=== PATIENT | male | born 1950 | race Caucasian/White ===

== ENCOUNTER → 2016-04-02 | Outpatient (CLI) | payer BC, MEDICARE ==
[~2016-04-02] MED LIST: AMIT25TA9 PO; ASPI81TA28 PO; ATEN-175 PO; CHOLTAB3 PO; GABA-113 PO; LEVO25TA PO; PRAV20TA PO
[2016-04-02 13:14] LABS: BASO % 0.2 %; BASO ABS # 0.01 K/uL (0-0.2); COMPLETE YES; EOS % 4.6 %; HEMATOCRIT 41.4 % (42-52); IG% 0.3 %; LYMPH ABS # 1.27 K/uL (1.2-3.4); MEAN CELL VOLUME 89.6 fL (80-100); MEAN CORPUSCULAR HEMOGLOBIN 31.6 pg (25-34); MEAN CORPUSCULAR HGB CONC 35.3 g/dl (32-36); MONO % 8.3 %; NEUT % 65.6 %; PLATELET COUNT 181 K/uL (130-400); RED BLOOD COUNT 4.62 M/uL (4.7-6.1); WHITE BLOOD COUNT 6.04 K/uL (4.8-10.8)
[2016-04-02 13:34] LABS: URINE APPEARANCE CLEAR (CLEAR); URINE BILIRUBIN NEG (NEG); URINE COLOR YELLOW; URINE EPITHELIAL CELL AUTO 0-5 /lpf (0-5); URINE NITRITE NEG (NEG); URINE PH 5.5 (4.5-7.5); URINE SPECIFIC GRAVITY 1.008 (1.000-1.030); UROBILINOGEN NEG (NEG); ZZUR CULT IF INDIC CLEAN CATCH NO
[2016-04-02 13:36] LABS: ALT/SGPT 29 U/L (12-78); AST/SGOT 19 U/L (15-37); BLOOD UREA NITROGEN 15 mg/dl (7-18); BUN/CREATININE RATIO 11.6 (10-20); CALCIUM 9.6 mg/dl (8.5-10.1); CARBON DIOXIDE 32 mmol/L (21-32); CHLORIDE 104 mmol/L (98-107); GLUCOSE 119 mg/dl (70-99); SODIUM 142 mmol/L (136-145)
[2016-04-02 13:41] LABS: ESTIMATED AVERAGE GLUCOSE 117 mg/dl; HA1C FLAG Normal (Normal)
[2016-04-02 13:52] LABS: MANUAL MICROSCOPIC REQUIRED? NO; REVIEW REQ? NO
--- NOTE | 2016-04-13 10:46 | CODING QUERY MEDICAL NECESSITY ---
SUPPORTING DIAGNOSIS NEEDED A supporting diagnosis is required for the test/procedure performed on this patient in order for us to be reimbursed by the patient's insurance. Please provide a supporting diagnosis for the following test/procedure listed below next to the test name along with your signature. *If there is no additional diagnosis for this patient that would support the following test/procedure please document that below next to the test/procedure. Test(s)/Procedure(s) that require a supporting diagnosis: DOS 04/02 * Hba1c DIAGNOSIS: Provider Signature: Date: Thank you Nat Cheney Health Information Management Once completed, please kindly fax back to [phone] For questions please call [phone]
== END | disposition home or self-care (01) ==
LOC: C.LABMFLN 10:17
PROVIDERS: ATTEND Internal Medicine
DX: E78.00 Pure hypercholesterolemia, unspecified (principal); N13.30 Unspecified hydronephrosis; N28.9 Disorder of kidney and ureter, unspecified; N26.9 Renal sclerosis, unspecified; I10 Essential (primary) hypertension; Z00.00 Encounter for general adult medical examination without abnormal findings; R73.9 Hyperglycemia, unspecified

== ENCOUNTER → 2016-04-04 | Outpatient (CLI) | payer BC, MEDICARE ==
[2016-04-04 13:48] LABS: CHOLESTEROL/HDL RATIO 4.4; PROSTATE SPECIFIC ANTIGEN 1.21 ng/ml (0.000-4.000)
--- NOTE | 2016-04-09 12:58 | CODING QUERY MEDICAL NECESSITY ---
SUPPORTING DIAGNOSIS NEEDED A supporting diagnosis is required for the test/procedure performed on this patient in order for us to be reimbursed by the patient's insurance. Please provide a supporting diagnosis for the following test/procedure listed below next to the test name along with your signature. *If there is no additional diagnosis for this patient that would support the following test/procedure please document that below next to the test/procedure. Test(s)/Procedure(s) that require a supporting diagnosis: DOS 04/04 * PSA DIAGNOSIS: Provider Signature: Date: Thank you Nat Cheney Health Information Management Once completed, please kindly fax back to [phone] For questions please call [phone]
== END | disposition home or self-care (01) ==
LOC: C.LABMFLN 10:21
PROVIDERS: ATTEND Internal Medicine
DX: E78.00 Pure hypercholesterolemia, unspecified (principal); N13.30 Unspecified hydronephrosis; N28.9 Disorder of kidney and ureter, unspecified; Z12.5 Encounter for screening for malignant neoplasm of prostate

== ENCOUNTER → 2016-10-01 | Outpatient (CLI) | payer MEDICARE ==
[2016-10-01 13:12] LABS: BASO % 0.4 %; BASO ABS # 0.02 K/uL (0-0.2); COMPLETE YES; EOS % 2.7 %; IG% 0.2 %; LYMPH % 21.1 %; MEAN CELL VOLUME 92.3 fL (80-100); MEAN CORPUSCULAR HEMOGLOBIN 31.4 pg (25-34); MEAN PLATELET VOLUME 10.2 fL (7.4-10.4); MONO % 9.6 %; PLATELET COUNT 175 K/uL (130-400); RED BLOOD COUNT 4.55 M/uL (4.7-6.1); WHITE BLOOD COUNT 5.22 K/uL (4.8-10.8)
[2016-10-01 13:13] LABS: URINE APPEARANCE CLEAR (CLEAR); URINE BILIRUBIN NEG (NEG); URINE COLOR YELLOW; URINE EPITHELIAL CELL AUTO 0-5 /lpf (0-5); URINE NITRITE NEG (NEG); URINE PH 5.5 (4.5-7.5); URINE SPECIFIC GRAVITY 1.023 (1.000-1.030); UROBILINOGEN NEG (NEG)
[2016-10-01 13:14] LABS: MANUAL MICROSCOPIC REQUIRED? NO; REVIEW REQ? NO
[2016-10-01 13:22] LABS: BLOOD UREA NITROGEN 18 mg/dl (7-18); BUN/CREATININE RATIO 16.7 (10-20); CALCIUM 9.4 mg/dl (8.5-10.1); CARBON DIOXIDE 29 mmol/L (21-32); CHLORIDE 107 mmol/L (98-107); CHOLESTEROL 186 mg/dl (0-200); GLUCOSE 95 mg/dl (70-99); POTASSIUM 4.3 mmol/L (3.5-5.1); SODIUM 141 mmol/L (136-145); TRIGLYCERIDES 145 mg/dl (0-150); VERY LOW DENSITY LIPOPROT CALC 29 mg/dl
[2016-10-01 13:25] LABS: CHOLESTEROL/HDL RATIO 5.2; HDL CHOLESTEROL 36 mg/dl; LDL CHOLESTEROL CALCULATED 121 mg/dl; PHOSPHORUS 2.1 mg/dl (2.5-4.9)
[2016-10-01 13:54] LABS: THYROID STIMULATING HORMONE 2.69 uIu/ml (0.300-4.500)
[2016-10-01 14:25] LABS: ESTIMATED AVERAGE GLUCOSE 123 mg/dl; HA1C FLAG Normal (Normal)
== END ==
LOC: C.LABMFLN 09:58
PROVIDERS: ATTEND Internal Medicine
DX: E78.5 Hyperlipidemia, unspecified (principal); Z11.59 Encounter for screening for other viral diseases; N18.3 Chronic kidney disease, stage 3 (moderate); I10 Essential (primary) hypertension; R73.01 Impaired fasting glucose; E03.9 Hypothyroidism, unspecified

== ENCOUNTER → 2017-04-15 | Outpatient (CLI) | payer MEDICARE ==
[2017-04-15 12:35] LABS: BASO % 0.5 %; BASO ABS # 0.03 K/uL (0-0.2); EOS % 3.1 %; EOS ABS # 0.17 K/uL (0-0.5); HEMATOCRIT 42.8 % (42-52); HEMOGLOBIN 14.7 g/dL (14.0-18.0); IG# 0.02 K/uL (0.00-0.02); LYMPH % 23.4 %; LYMPH ABS # 1.28 K/uL (1.2-3.4); MEAN CELL VOLUME 91.8 fL (80-100); MEAN CORPUSCULAR HEMOGLOBIN 31.5 pg (25-34); MEAN CORPUSCULAR HGB CONC 34.3 g/dl (32-36); MEAN PLATELET VOLUME 10.1 fL (7.4-10.4); MONO ABS # 0.49 K/uL (0.11-0.59); NEUT % 63.6 %; NEUT ABS # 3.47 K/uL (1.4-6.5); PLATELET COUNT 175 K/uL (130-400); RED CELL DISTRIBUTION WIDTH CV 12.5 % (11.5-14.5); RED CELL DISTRIBUTION WIDTH SD 41.8 fL (36.4-46.3); WHITE BLOOD COUNT 5.46 K/uL (4.8-10.8)
[2017-04-15 13:29] LABS: HEMOGLOBIN A1C 5.9 % (4.5-5.6)
[2017-04-15 13:34] LABS: ALT/SGPT 29 U/L (12-78); AST/SGOT 19 U/L (15-37); BLOOD UREA NITROGEN 23 mg/dl (7-18); CALCIUM 8.8 mg/dl (8.5-10.1); CARBON DIOXIDE 30 mmol/L (21-32); GLUCOSE 98 mg/dl (70-99); SODIUM 139 mmol/L (136-145)
[2017-04-15 13:44] LABS: CHOLESTEROL 168 mg/dl (0-200); LDL CHOLESTEROL CALCULATED 103 mg/dl
== END | disposition home or self-care (01) ==
LOC: C.LABMFLN 10:29
PROVIDERS: ATTEND Internal Medicine
DX: E78.00 Pure hypercholesterolemia, unspecified (principal)

== ENCOUNTER → 2017-10-16 | Outpatient (CLI) | payer MEDICARE ==
[~2017-10-16] MED LIST changes: -CHOLTAB3 PO
[2017-10-16 12:46] LABS: BASO % 0.3 %; BASO ABS # 0.02 K/uL (0-0.2); EOS % 1.8 %; EOS ABS # 0.12 K/uL (0-0.5); HEMOGLOBIN 14.8 g/dL (14.0-18.0); IG# 0.02 K/uL (0.00-0.02); LYMPH % 20.2 %; LYMPH ABS # 1.34 K/uL (1.2-3.4); MEAN CELL VOLUME 91.7 fL (80-100); MEAN CORPUSCULAR HEMOGLOBIN 30.8 pg (25-34); MEAN CORPUSCULAR HGB CONC 33.6 g/dl (32-36); MONO % 8.4 %; MONO ABS # 0.56 K/uL (0.11-0.59); NEUT ABS # 4.59 K/uL (1.4-6.5); PLATELET COUNT 201 K/uL (130-400); RED CELL DISTRIBUTION WIDTH CV 12.8 % (11.5-14.5); RED CELL DISTRIBUTION WIDTH SD 42.8 fL (36.4-46.3); WHITE BLOOD COUNT 6.65 K/uL (4.8-10.8)
[2017-10-16 12:56] LABS: ALT/SGPT 30 U/L (12-78); AST/SGOT 25 U/L (15-37); BLOOD UREA NITROGEN 23 mg/dl (7-18); CARBON DIOXIDE 28 mmol/L (21-32); CHOLESTEROL 183 mg/dl (0-200); CREATININE 1.15 mg/dl (0.60-1.40); GLUCOSE 105 mg/dl (70-99); LDL CHOLESTEROL CALCULATED 116 mg/dl; SODIUM 139 mmol/L (136-145)
== END | disposition home or self-care (01) ==
LOC: C.LABMFLN 09:28
PROVIDERS: ATTEND Internal Medicine
DX: E78.00 Pure hypercholesterolemia, unspecified (principal)

== ENCOUNTER 2022-11-20 15:20 | Inpatient (IN) ==
--- NOTE | 2022-11-20 16:02 | XRay Report ---
XR chest 1V not portable CLINICAL HISTORY: Chest pain, nonspecific COMPARISON STUDY: Chest radiograph December 22, 2017. FINDINGS: Lung volumes are normal. There is no consolidation to suggest pneumonia. Linear left basila r densities favor atelectasis or scarring. There is no pneumothorax or pleural effusion. Cardiac size is stable. Mediastinal contours are normal. There is no evidence for pulmonary edema. IMPRESSION: No acute cardiopulmonary findings. No change in appearance of the chest. ACT 112: Negative or not required by law. Electronically signed by: Gopal Donaldson M.D. 11/20/2022 4:01 PM
[2022-11-20 16:18] LABS: Basophils # (auto) 0.03 K/uL (0.00-0.20); Basophils % (auto) 0.4 %; Eosinophils # (auto) 0.27 K/uL (0.00-0.50); Eosinophils % (auto) 3.6 %; Hematocrit (blood only) 37.3 % (42.0-52.0); Hemoglobin 12.7 g/dl (14.0-18.0); Immature Granulocytes # (auto) 0.02 K/uL (0.01-0.20); Immature Granulocytes % (auto) 0.3 %; Lymphocytes % (auto) 17.5 %; Mean Corpuscular Hemoglobin 31.3 pg (25.0-34.0); Mean Corpuscular Volume 91.9 fL (80.0-100.0); Mean Platelet Volume 9.3 fL (9.4-12.4); Monocytes # (auto) 0.78 K/uL (0.11-0.59); Monocytes % (auto) 10.5 %; Neutrophils # (auto) 5.02 K/uL (1.40-6.50); Neutrophils % (auto) 67.7 %; Platelet Count 193 K/uL (130-400); RDW Coefficient of Variation 12.2 % (11.5-14.5); RDW Standard Deviation 41.3 fL (36.4-46.3); Red Blood Count 4.06 M/uL (4.70-6.10); White Blood Count 7.42 K/ul (4.8-10.8)
[2022-11-20 16:31] LABS: Partial Thromboplastin Ratio 0.9; Partial Thromboplastin Time 26.1 Seconds (21.0-31.0); Prothrombin Time 10.9 Seconds (9.0-12.0)
[2022-11-20 16:41] LABS: Albumin Globulin Ratio 1.3 (0.9-2); BUN Creatinine Ratio 20.6 (10-20); Bilirubin,Total 0.7 mg/dl (0.2-1.0); Calcium 9.4 mg/dl (8.6-10.3); Creatinine Clr Calc Pharmacy 57.6 ml/min; Est GFR (African American) 63.5 ml/min; Est GFR (Non-African American) 54.8 ml/min; Globulin 3.1 gm/dl (2.5-4.0); Potassium 4.5 mmol/L (3.5-5.1); Total Protein 7.1 gm/dl (6.0-8.3)
[2022-11-20 16:47] LABS: Troponin I High Sensitivity 4.1 pg/ml (0-20)
--- NOTE | 2022-11-20 20:10 | Emergency Department Note ---
Impression & Plan Palpitations, Dyspnea, Anemia ED Provider Note NAME: DANIELA JAMES AGE: 72 SEX: M : 1950 ARRIVES VIA: Walk-In INFORMANT: Patient, ED PROVIDER(S): Ej Felton MD CHIEF COMPLAINT: Palpitations, shortness of breath MEDICAL DECISION MAKING: Patient presents for palpitations and associated shortness of breath in the set ting of recent diagnosis of multifocal atrial tachycardia on diltiazem. IV was established and blood was obtained. EKG chest x-ray are unremarkable. Patient's blood work shows mild anemia otherwise unremarkable. Patient's at bedside is very concerned and would like input from cardiology as well as a possible echocardiogram. I did state the patient may benefit from telemetry monitoring but the patient's current blood work imaging and vital signs are unremarkable. I did speak with on-call hospitalist Dr. Alex and the patient was admitted to the medicine service. Prior /Outside records reviewed: I reviewed a nephrology visit from July [address] Arrington. Patient has a known history of CKD hypertension hydronephrosis of the right kidney and hypercholesterolemia. History of prior DAINA with interstitial nephritis possibly secondary to NSAIDs. Differential diagnosis: Reactive airway disease, pneumonia, pneumothorax, COPD, CHF, ACS, pulmonary embolism, musculoskeletal, GERD as well as other pathologies were considered. Diagnostics, as interpreted by me: ECG: Sinus tach bradycardia, rate of 56, normal intervals, normal axis, T wave version in lead III not in contiguous leads. No ST elevations. Cardiac monitoring: An order was placed for continuous cardiac monitoring. The monitor shows a rate of 62 with sinus rhythm. Patient was placed on pulse oximetry Medical decision rules: None Imaging studies: See below I informally reviewed the patient's chest x-ray which does not show obvious pneumothorax. HPI: Patient presents due to concern for palpitations. The patient reportedly did have recent episodes of associated palpitations shortness of breath and was seen at [facility]. Patient was noted to have heart rates that were elevated as high as 190 per the at bedside. The patient was diagnosed with multifocal atrial tachycardia and started on diltiazem. Patient denies any cough or fever. No leg swelling or calf pain. Patient denies any chest pains but has had some shortness of breath. No reported cough or fever no history of DVT or PE in the past. Patient states that he has been compliant with his medications. No increase in anxiety and the patient relates that he feels he has appropriate sleep. Patient denies any nausea vomiting or diarrhea. Patient believes that his diet has been adequate and has been getting enough fluids. No reported alcohol tobacco or drug use. Patient denies any supplements or stimulants. PAST MEDICAL HISTORY: See Below PAST SURGICAL HISTORY: See Below SOCIAL HISTORY: See Below HOME MEDICATIONS: See Below ALLERGIES: See Below VITALS: See Below PHYSICAL EXAMINATION: GENERAL: NAD, non-toxic. Wearing glasses. EYE EXAM: Normal conjunctiva. PERRL, no anisocoria and EOM's grossly intact w/o pain. OROPHARYNX: Moist mucus membranes, grossly normal dentition. NECK: Supple, no nuchal rigidity, no adenopathy, non-tender. No signs of meningismus. FROM of the neck with good chin to chest and neck extension. No stridor. LUNGS: Clear to auscultation. Normal chest wall mechanics. HEART: NSR, no MRG. ABDOMEN: Abdomen soft, non-tender, no masses, no rebound or guarding. BACK: No CVA TTP. SKIN: No rashes and no bruising. UPPER EXTREMITIES: Upper extremities are grossly normal. LOWER EXTREMITIES: Grossly normal, no edema. Negative Homans' sign bilaterally. NEURO EXAM: A&O x3, cranial nerves II-XII grossly intact, normal speech, moves all 4 extremities. Past Med/Surg History Medical History Acute bronchitis Acute renal failure Arthritis Asthma BPH (benign prostatic hyperplasia) Chronic back pain CKD (chronic kidney disease) stage 2, GFR 60-89 ml/min CKD (chronic kidney disease), stage III Depression Dyslipidemia Dysuria HTN (hypertension) Hydronephrosis chronic r hydronephrosis secondary to R UPJ obstruction - congenital Hydronephrosis of right kidney Hypercholesterolemia Hyperglycemia Hypothyroidism Interstitial nephritis Kidney stone Low back pain Lumbar canal stenosis Lumbar herniated disc Peripheral neuropathy Renal insufficiency Shingles (herpes zoster) polyneuropathy Special screening, prostate cancer Swelling abdomen Tarsal tunnel syndrome s/p surgery Thoracic disc herniation Tooth abscess Ulnar nerve entrapment Ureteropelvic junction obstruction, congenital Surgical History History of cholecystectomy Family History Unknown Hypertension Mother Skin cancer Hypertension Stroke Father Skin cancer Other ALS (amyotrophic lateral sclerosis) No pertinent family history Parkinson disease Social History Smoking Status: Never smoker Second Hand Exposure: No; Do You Dip or Chew Tobacco: No; Hx Alcohol Use: No Hx Substance Use: No Preferred Language: German Communication Ability: Effective Metal Off Bearer Required: No Beliefs That Will Affect Care: None marital status: Current Living Situation: Spouse current occupational status: retired How many Children do You have: 3 Other Information That Helps Us Care for You: Yes Feels Safe at Home: Yes Safety Concerns: Feels Safe At This Time Assistive Devices: Glasses Allergies Allergies Allergy/AdvReac Type Severity Reaction Status Date / Time Penicillins Allergy Intermediate RASH,HIVES, Verified 08/03/22 13:15 SWELLING NSAIDS (Non-Steroidal Allergy Unknown RASH Unverified 08/03/22 13:15 Anti-Inflamma cefixime AdvReac Unknown GI SYMPTOMS Verified 08/03/22 13:15 sodium benzoate AdvReac Unknown GI SYMPTOMS Verified 08/03/22 13:15 Home Meds Home Medications Medication Instructions Recorded Confirmed amitriptyline 25 mg tablet 25 mg PO DAILY 12/09/17 11/20/22 aspirin 81 mg tablet,delayed 81 mg PO DAILY 12/09/17 11/20/22 release (Safia Low Dose Aspirin) atenolol 100 mg tablet 100 mg PO DAILY 12/09/17 11/20/22 gabapentin 300 mg capsule See Rx Instructions PO DAILY 01/11/20 11/20/22 vitamins A,C,D-vgue-lmplye 1 tab PO BID 07/18/20 11/21/22 [PreserVision AREDS] ezetimibe 10 mg tablet (Zetia) 10 mg PO DAILY 08/04/21 11/20/22 pravastatin 80 mg tablet 80 mg PO DAILY 08/03/22 11/20/22 diltiazem HCl 120 mg 120 mg PO DAILY 11/21/22 11/21/22 capsule,extended release 24 hr levothyroxine 75 mcg tablet 75 mcg PO DAILY 11/21/22 11/21/22 venlafaxine 75 mg capsule,extended 75 mg PO DAILY 11/21/22 11/21/22 release 24 hr Results & Data (ED) Vital Signs Vital Signs - 24 hr 11/20/22 20:10 11/20/22 20:37 11/20/22 20:08 Pulse Rate 55 L 66 Respiratory Rate 23 Blood Pressure 162/88 H Blood Pressure Mean 112 Pulse Oximetry 94 Oxygen Delivery Method Room Air 11/20/22 20:30 11/20/22 21:00 11/20/22 21:13 Pulse Rate 55 L 57 L 60 Respiratory Rate 13 13 18 Blood Pressure 151/84 H Blood Pressure Mean 106 Pulse Oximetry 97 97 97 Oxygen Delivery Method Room Air Room Air Room Air 11/20/22 21:30 11/20/22 22:00 11/20/22 22:30 Pulse Rate 59 L 55 L 58 L Respiratory Rate 12 13 19 Blood Pressure 143/81 H 150/78 H 162/85 H Blood Pressure Mean 101 102 110 Pulse Oximetry 96 98 96 Oxygen Delivery Method Room Air Room Air Room Air Home Medications Current Medication List: was personally reviewed by me Laboratory Data Attestation: I reviewed the patient's lab results. 11/20/22 16:02 11/20/22 16:02 Lab Results 11/20/22 11/20/22 11/20/22 Range/Units 16:02 16:02 16:02 WBC 7.42 (4.8-10.8) K/ul RBC 4.06 L (4.70-6.10) M/uL Hgb 12.7 L (14.0-18.0) g/dl Hct 37.3 L (42.0-52.0) % MCV 91.9 (80.0-100.0) fL MCH 31.3 (25.0-34.0) pg MCHC 34.0 (32.0-36.0) g/dL RDW Std Deviation 41.3 (36.4-46.3) fL RDW Coeff of Ambrosio 12.2 (11.5-14.5) % Plt Count 193 (130-400) K/uL MPV 9.3 L (9.4-12.4) fL Immature Gran % (Auto) 0.3 % Neut % (Auto) 67.7 % Lymph % (Auto) 17.5 % Crowley % (Auto) 10.5 % Eos % (Auto) 3.6 % Baso % (Auto) 0.4 % Neut # (Auto) 5.02 (1.40-6.50) K/uL Lymph # (Auto) 1.30 (1.20-3.40) K/uL Crowley # (Auto) 0.78 H (0.11-0.59) K/uL Eos # (Auto) 0.27 (0.00-0.50) K/uL Baso # (Auto) 0.03 (0.00-0.20) K/uL Immature Gran # (Auto) 0.02 (0.01-0.20) K/uL PT 10.9 (9.0-12.0) Seconds INR 1.0 (0.9-1.1) APTT 26.1 (21.0-31.0) Seconds PTT Ratio 0.9 D-Dimer (0-500) ug/L FEU Sodium 140 (136-145) mmol/L Potassium 4.5 (3.5-5.1) mmol/L Chloride 106 (98-107) mmol/L Carbon Dioxide 29 (21-32) mmol/L Anion Gap 5 (3-11) BUN 27 H (6-23) mg/dl Creatinine 1.31 (0.6-1.4) mg/dl Est Cr Clr Drug Dosing 57.6 ml/min Est GFR ( Amer) 63.5 ml/min Est GFR (Non-Af Amer) 54.8 ml/min BUN/Creatinine Ratio 20.6 H (10-20) Glucose 78 (70-99(Fasting)) mg/dl Calcium 9.4 (8.6-10.3) mg/dl Magnesium 2.3 (1.7-2.4) mg/dl Total Bilirubin 0.7 (0.2-1.0) mg/dl AST 25 (13-39) U/L ALT 28 (7-52) U/L Alkaline Phosphatase 98 (34-104) U/L Troponin I High Sens 4.1 (0-20) pg/ml Total Protein 7.1 (6.0-8.3) gm/dl Albumin 4.0 (3.4-5.0) gm/dl Globulin 3.1 (2.5-4.0) gm/dl Albumin/Globulin Ratio 1.3 (0.9-2) TSH (0.300-4.500) uIu/ml Lyme Disease IgG Ab (Negative) Lyme Disease IgM Ab (Negative) 11/20/22 11/20/22 11/20/22 Range/Units 16:02 16:02 22:13 WBC (4.8-10.8) K/ul RBC (4.70-6.10) M/uL Hgb (14.0-18.0) g/dl Hct (42.0-52.0) % MCV (80.0-100.0) fL MCH (25.0-34.0) pg MCHC (32.0-36.0) g/dL RDW Std Deviation (36.4-46.3) fL RDW Coeff of Ambrosio (11.5-14.5) % Plt Count (130-400) K/uL MPV (9.4-12.4) fL Immature Gran % (Auto) % Neut % (Auto) % Lymph % (Auto) % Crowley % (Auto) % Eos % (Auto) % Baso % (Auto) % Neut # (Auto) (1.40-6.50) K/uL Lymph # (Auto) (1.20-3.40) K/uL Crowley # (Auto) (0.11-0.59) K/uL Eos # (Auto) (0.00-0.50) K/uL Baso # (Auto) (0.00-0.20) K/uL Immature Gran # (Auto) (0.01-0.20) K/uL PT (9.0-12.0) Seconds INR (0.9-1.1) APTT (21.0-31.0) Seconds PTT Ratio D-Dimer 960 H* (0-500) ug/L FEU Sodium (136-145) mmol/L Potassium (3.5-5.1) mmol/L Chloride (98-107) mmol/L Carbon Dioxide (21-32) mmol/L Anion Gap (3-11) BUN (6-23) mg/dl Creatinine (0.6-1.4) mg/dl Est Cr Clr Drug Dosing ml/min Est GFR ( Amer) ml/min Est GFR (Non-Af Amer) ml/min BUN/Creatinine Ratio (10-20) Glucose (70-99(Fasting)) mg/dl Calcium (8.6-10.3) mg/dl Magnesium (1.7-2.4) mg/dl Total Bilirubin (0.2-1.0) mg/dl AST (13-39) U/L ALT (7-52) U/L Alkaline Phosphatase (34-104) U/L Troponin I High Sens (0-20) pg/ml Total Protein (6.0-8.3) gm/dl Albumin (3.4-5.0) gm/dl Globulin (2.5-4.0) gm/dl Albumin/Globulin Ratio (0.9-2) TSH 3.038 (0.300-4.500) uIu/ml Lyme Disease IgG Ab Positive A (Negative) Lyme Disease IgM Ab Equivocal A (Negative) Administered Medications Aspirin (Aspirin 81 Mg Ectab) 81 mg PO DAILY NESTOR Stop: 12/21/22 08:59 Last Admin: 11/21/22 08:37 Dose: 81 mg Documented By: JANEE [facility] ([facility] 25 Mg Tablet) [facility] [place]: 12/21/22 08:59 Last Admin: 11/21/22 08:37 Dose: 25 mg Documented By: JANEE Enoxaparin Sodium (Enoxaparin Inj 40 Mg/0.4 Ml Syr) [facility] [place]: 12/21/22 08:59 Last Admin: 11/21/22 08:38 Dose: Not Given Documented By: JANEE Gabapentin (Gabapentin 300 Mg Cap) 300 mg PO QDL [facility] Stop: 12/21/22 11:29 Last Admin: 11/21/22 12:35 Dose: 300 mg Documented By: CHETAN Gabapentin (Gabapentin 600 Mg Tab) [facility] [place]: 12/21/22 08:59 Last Admin: 11/21/22 08:38 Dose: 600 mg Documented By: JANEE Levothyroxine Sodium (Levothyroxine Sodium 50 Mcg Tablet) 50 mcg PO DAILYBB [facility] Stop: 12/21/22 06:29 Last Admin: 11/21/22 07:39 Dose: 50 mcg Documented By: JANEE Discontinued Medications Amitriptyline HCl (Amitriptyline Hcl 25 Mg Tab) 25 mg PO NOW STA Stop: 11/21/22 00:27 Last Admin: 11/21/22 01:00 Dose: 25 mg Documented By: ADALID Amlodipine Besylate (Amlodipine Besylate 5 Mg Tab) 2.5 mg PO NOW ONE Stop: 11/20/22 21:25 Last Admin: 11/20/22 22:12 Dose: 2.5 mg Documented By: ADALID Ezetimibe (Ezetimibe 10 Mg Tab) 10 mg PO NOW STA Stop: 11/21/22 00:27 Last Admin: 11/21/22 00:59 Dose: 10 mg Documented By: ADALID Gabapentin (Gabapentin 300 Mg Cap) 900 mg PO NOW STA Stop: 11/21/22 00:34 Last Admin: 11/21/22 01:00 Dose: 900 mg Documented By: ADALID Lactated Ringer's (Lr) 1,000 mls @ 50 mls/hr IV .Q20H ONE Stop: 11/21/22 17:23 Last Infusion: 11/21/22 00:20 Dose: 50 mls/hr Documented By: Infusion: 11/20/22 23:48 Dose: 0 mls/hr Documented By: Admin: 11/20/22 22:12 Dose: 50 mls/hr Documented By: ADALID Ceftriaxone Sodium (Rocephin) 2,000 mg in 70 mls @ 140 mls/hr IV NOW STA Stop: 11/20/22 23:22 Last Infusion: 11/21/22 00:19 Dose: 0 mls/hr Documented By: Admin: 11/20/22 23:45 Dose: 140 mls/hr Documented By: ADALID Ioversol (Ioversol 350 Mg 125ml Prefilled Syringe) 125 ml IV ONCE ONE Stop: 11/21/22 00:07 Last Admin: 11/21/22 00:06 Dose: 116 ml Documented By: SAMUEL Pravastatin Sodium (Pravastatin Sod 40 Mg Tab) 80 mg PO NOW STA Stop: 11/21/22 00:27 Last Admin: 11/21/22 00:59 Dose: 80 mg Documented By: ADALID Imaging Data Radiologist's Impression: Chest X-Ray 11/20/22 15:27 XR chest 1V not portable CLINICAL HISTORY: Chest pain, nonspecific COMPARISON STUDY: Chest radiograph December 22, 2017. FINDINGS: Lung volumes are normal. There is no consolidation to suggest pneumonia. Linear left basilar densities favor atelectasis or scarring. There is no pneumothorax or pleural effusion. Cardiac size is stable. Mediastinal contours are normal. There is no evidence for pulmonary edema. IMPRESSION: No acute cardiopulmonary findings. No change in appearance of the chest. ACT 112: Negative or not required by law. Electronically signed by: Gopal Donaldson M.D. 11/20/2022 4:01 PM Discharge Plan Visit Data Chief Complaint: Shortness of Breath/Dyspnea Stated Complaint: SOB, RAPID HEARTBEAT, IZZINESS ED Provider: Ej Felton Discharge Problem: Palpitations, Dyspnea, Anemia Patient Disposition: Admitted As Inpatient Discharge Instructions Interventions: ED Discharge Assessment Last Done: 11/21/22 10:11
[2022-11-20] MEDS ORDERED: amLODIPine BESYLATE 5 MG TAB PO ONE (21:24)
[2022-11-20] MEDS ORDERED: LACTATED RINGER'S 1,000 ML IV ONE (21:24)
[2022-11-20 22:05] LABS: Magnesium 2.3 mg/dl (1.7-2.4)
[2022-11-20 22:33] LABS: Lyme Ab IgG w/WB Rflx Positive (Negative); Lyme Ab IgM w/WB Rflx Equivocal (Negative)
[2022-11-20] MEDS ORDERED: cefTRIAXone SODIUM 2,000 MG/70 ML BAG IV STA (22:53)
--- NOTE | 2022-11-20 22:54 | History & Physical Report ---
Date of Service November 20, 2022 Assessment & Plan (1) Dizziness: Plan: Multifactorial: Uncontrolled hypertension ? cardiac Lyme, equivocal Lyme screen Rule out orthostasis New onset anemia, noted from recent [facility] ER visit, FOBT done at the ER negative hx CAD as per records hyperlipidemia, on statin Rx asthma/COPD, not in acute exacerbation CRI, creatinine at baseline hx chronic right sided hydronephrosis from UPJ obstruction prediabetes, with an A1c of 6 last month hypothyroidism, euthyroid as of today's TSH anxiety/mood disorder, patient baseline anxious as per PCU Initiate amlodipine given bradycardia Decrease maintenance beta-efra beta-efra dose for now given bradycardia, hold new calcium channel efra medications IV ceftriaxone Check orthostatic vitals TTE, Cardiology consult Re: Dizziness, arrhythmia Anemia work-up, patient refuses to consent to prospective transfusion for now if hemoglobin continues to drop DVT prophylaxis. Lovenox subcu Full code Patient requesting updates providers. Kimberly Frank, contact #[phone]. Text document was generated using Son[employer]ation voice recognition software. It may contain grammatical or spelling errors. Kindly contact undersigned for clarification of any documentation item in question. History of Present Illness Chief Complaint: Shortness of breath, dizziness Primary Care Provider: Frances Jenkins History obtained from patient, family, and records. Medical history significant for CAD as per records, HTN, hyperlipidemia, asthma/COPD, CRI (baseline creatinine 1.3), history chronic right sided hydronephrosis from UPJ obstruction, prediabetes, hypothyroidism, anxiety/mood disorder. Last confinement 2017 for intractable back pain. 2 weeks ago, patient noted lightheaded symptoms especially with standing up. Denies headache. Shortness of breath on exertion without chest pain or palpitations. Transient diarrheal illness a week prior to illness. Patient admits to having a lot of ticks at home although does not recall recent tick bites. No unusual stress. Denies abdominal pain, black/bloody stools, hematuria. Patient consulted [facility] ER last November 09. Heart rate 60s at the ER. Hemoglobin noted to be 13. Possible episodes of SVT as per documentation. Multifocal atrial tachycardia on review of EKGs by [facility] baby sitter. Diltiazem ER in addition to patient's atenolol, outpatient Cardiology referral recommended by baby sitter as per conversation with ER provider, Patient advised to take blood pressure at home. SBP 1 50-1 70s as per patient. Patient not sure if symptoms improved after new medication. Patient brought to ER by with worsening symptoms. 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[employer] Allergies Allergy/AdvReac Type Severity Reaction Status Date / Time Penicillins Allergy Intermediate RASH,HIVES, Verified 08/03/22 13:15 SWELLING NSAIDS (Non-Steroidal Allergy Unknown RASH Unverified 08/03/22 13:15 Anti-Inflamma cefixime AdvReac Unknown GI SYMPTOMS Verified 08/03/22 13:15 sodium benzoate AdvReac Unknown GI SYMPTOMS Verified 08/03/22 13:15 Home Medications Medication Instructions Recorded Confirmed Type amitriptyline 25 mg tablet 25 mg PO DAILY 12/09/17 11/20/22 History aspirin 81 mg tablet,delayed 81 mg PO DAILY 12/09/17 11/20/22 History release (Safia Low Dose Aspirin) atenolol 100 mg tablet 100 mg PO DAILY 12/09/17 11/20/22 History gabapentin 300 mg capsule See Rx Instructions PO DAILY 01/11/20 11/20/22 History levothyroxine 50 mcg capsule 50 mcg PO DAILY 07/18/20 11/20/22 History vitamins A,C,Z-emel-kbbich 1 tab PO BID 07/18/20 08/03/22 History [PreserVision AREDS] ezetimibe 10 mg tablet (Zetia) 10 mg PO DAILY 08/04/21 11/20/22 History pravastatin 80 mg tablet 80 mg PO DAILY 08/03/22 11/20/22 History diltiazem HCl 120 mg 120 mg PO DAILY 11/21/22 11/21/22 History capsule,extended release 24 hr Past Med/Surg History Medical History (Updated 11/21/22 @ 02:51 by Herminio Alex MD) Acute bronchitis Acute renal failure Arthritis Asthma BPH (benign prostatic hyperplasia) Chronic back pain CKD (chronic kidney disease) stage 2, GFR 60-89 ml/min CKD (chronic kidney disease), stage III Depression Dyslipidemia Dysuria HTN (hypertension) Hydronephrosis chronic r hydronephrosis secondary to R UPJ obstruction - congenital Hydronephrosis of right kidney Hypercholesterolemia Hyperglycemia Hypothyroidism Interstitial nephritis Kidney stone Low back pain Lumbar canal stenosis Lumbar herniated disc Peripheral neuropathy Renal insufficiency Shingles (herpes zoster) polyneuropathy Special screening, prostate cancer Swelling abdomen Tarsal tunnel syndrome s/p surgery Thoracic disc herniation Tooth abscess Ulnar nerve entrapment Ureteropelvic junction obstruction, congenital Surgical History (Updated 11/21/18 @ 00:03 by Kailash Bustamante) History of cholecystectomy Family History (Updated 07/21/20 @ 14:45 by Yeimi Mckeon RN) Unknown Hypertension Mother Skin cancer Hypertension Stroke Father Skin cancer Other ALS (amyotrophic lateral sclerosis) No pertinent family history Parkinson disease Social History (Updated 07/21/20 @ 14:44 by Yeimi Mckeon RN) Smoking Status: Never smoker Second Hand Exposure: No; Do You Dip or Chew Tobacco: No; Hx Alcohol Use: No Hx Substance Use: No Preferred Language: Chilean Communication Ability: Effective Washing Machine Loader And Puller Required: No Beliefs That Will Affect Care: None marital status: Current Living Situation: Spouse current occupational status: retired How many Children do You have: 3 Other Information That Helps Us Care for You: Yes Feels Safe at Home: Yes Safety Concerns: Feels Safe At This Time Assistive Devices: Glasses Review of Systems Review of Systems: As per HPI, all other systems reviewed and negative Physical Exam Physical Exam: GENERAL: Comfortable, slightly anxious, no respiratory distress SKIN: Normal color, warm HEENT: Partial alopecia, bespectacled, pink palpebral conjunctivae, no ptosis, dry buccal mucosa NECK : Supple, no tenderness CHEST : CTA, no tenderness HEART : Bradycardic, no obvious murmurs ABDOMEN: Some distention, nontender RECTAL : Intact sphincter, brown stool (FOBT negative) EXTREMITIES : No LE swelling/tenderness, no other conspicuous deformities noted NEUROLOGIC : Coherent, no facial asymmetry, no other gross focality Results & Data Results & Data Vital Signs (Past 12 Hours) Vital Signs Temp Pulse Resp BP Pulse Ox O2 Del Method 11/20/22 22:00 55 L 13 150/78 H 98 Room Air 11/20/22 21:30 59 L 12 143/81 H 96 Room Air 11/20/22 21:13 60 18 151/84 H 97 Room Air 11/20/22 21:00 57 L 13 97 Room Air 11/20/22 20:30 55 L 13 97 Room Air 11/20/22 20:08 66 23 162/88 H 11/20/22 20:37 55 L 11/20/22 20:10 94 Room Air 11/20/22 15:27 98 Room Air 11/20/22 15:27 98 Room Air 11/20/22 15:23 36.4 C L 60 18 108/67 96 Room Air Laboratory Results Laboratory Results WBC 7.42 K/ul (4.8-10.8) 11/20/22 16:02 RBC 4.06 M/uL (4.70-6.10) L 11/20/22 16:02 Hgb 12.7 g/dl (14.0-18.0) L 11/20/22 16:02 Hct 37.3 % (42.0-52.0) L 11/20/22 16:02 MCV 91.9 fL (80.0-100.0) 11/20/22 16:02 MCH 31.3 pg (25.0-34.0) 11/20/22 16:02 MCHC 34.0 g/dL (32.0-36.0) 11/20/22 16:02 RDW Std Deviation 41.3 fL (36.4-46.3) 11/20/22 16:02 RDW Coeff of Ambrosio 12.2 % (11.5-14.5) 11/20/22 16:02 Plt Count 193 K/uL (130-400) 11/20/22 16:02 MPV 9.3 fL (9.4-12.4) L 11/20/22 16:02 Immature Gran % (Auto) 0.3 % 11/20/22 16:02 Neut % (Auto) 67.7 % 11/20/22 16:02 Lymph % (Auto) 17.5 % 11/20/22 16:02 [place] % (Auto) 10.5 % 11/20/22 16:02 Eos % (Auto) 3.6 % 11/20/22 16:02 Baso % (Auto) 0.4 % 11/20/22 16:02 Neut # (Auto) 5.02 K/uL (1.40-6.50) 11/20/22 16:02 Lymph # (Auto) 1.30 K/uL (1.20-3.40) 11/20/22 16:02 [place] # (Auto) 0.78 K/uL (0.11-0.59) H 11/20/22 16:02 Eos # (Auto) 0.27 K/uL (0.00-0.50) 11/20/22 16:02 Baso # (Auto) 0.03 K/uL (0.00-0.20) 11/20/22 16:02 Immature Gran # (Auto) 0.02 K/uL (0.01-0.20) 11/20/22 16:02 PT 10.9 Seconds (9.0-12.0) 11/20/22 16:02 INR 1.0 (0.9-1.1) 11/20/22 16:02 APTT 26.1 Seconds (21.0-31.0) 11/20/22 16:02 PTT Ratio 0.9 11/20/22 16:02 Sodium 140 mmol/L (136-145) 11/20/22 16:02 Potassium 4.5 mmol/L (3.5-5.1) 11/20/22 16:02 Chloride 106 mmol/L (98-107) 11/20/22 16:02 Carbon Dioxide 29 mmol/L (21-32) 11/20/22 16:02 Anion Gap 5 (3-11) 11/20/22 16:02 BUN 27 mg/dl (6-23) H 11/20/22 16:02 Creatinine 1.31 mg/dl (0.6-1.4) 11/20/22 16:02 Est Cr Clr Drug Dosing 57.6 ml/min 11/20/22 16:02 Est GFR ( Amer) 63.5 ml/min 11/20/22 16:02 Est GFR (Non-Af Amer) 54.8 ml/min 11/20/22 16:02 BUN/Creatinine Ratio 20.6 (10-20) H 11/20/22 16:02 Glucose 78 mg/dl (70-99(Fasting)) 11/20/22 16:02 Calcium 9.4 mg/dl (8.6-10.3) 11/20/22 16:02 Magnesium 2.3 mg/dl (1.7-2.4) 11/20/22 16:02 Total Bilirubin 0.7 mg/dl (0.2-1.0) 11/20/22 16:02 AST 25 U/L (13-39) 11/20/22 16:02 ALT 28 U/L (7-52) 11/20/22 16:02 Alkaline Phosphatase 98 U/L (34-104) 11/20/22 16:02 Troponin I High Sens 4.1 pg/ml (0-20) 11/20/22 16:02 Total Protein 7.1 gm/dl (6.0-8.3) 11/20/22 16:02 Albumin 4.0 gm/dl (3.4-5.0) 11/20/22 16:02 Globulin 3.1 gm/dl (2.5-4.0) 11/20/22 16:02 Albumin/Globulin Ratio 1.3 (0.9-2) 11/20/22 16:02 Lyme Disease IgG Ab Positive (Negative) A 11/20/22 16:02 Lyme Disease IgM Ab Equivocal (Negative) A 11/20/22 16:02 Impressions Chest X-Ray 11/20/22 15:27 XR chest 1V not portable CLINICAL HISTORY: Chest pain, nonspecific COMPARISON STUDY: Chest radiograph December 22, 2017. FINDINGS: Lung volumes are normal. There is no consolidation to suggest pneumonia. Linear left basilar densities favor atelectasis or scarring. There is no pneumothorax or pleural effusion. Cardiac size is stable. Mediastinal contours are normal. There is no evidence for pulmonary edema. IMPRESSION: No acute cardiopulmonary findings. No change in appearance of the chest. ACT 112: Negative or not required by law. Electronically signed by: Gopal Donaldson M.D. 11/20/2022 4:[address] chest: Mildly motion limited study without pulmonary arterial filling defect, pleural effusion, or pneumothorax. Bibasilar atelectasis without dense parenchymal consolidation. Diagnostic Findings EKG as per my interpretation : Rate 55, sinus bradycardia, normal axis, no ischemia
[2022-11-20] MEDS ORDERED: ACETAMINOPHEN 325 MG TAB PO PRN (23:00)
[2022-11-20] MEDS ORDERED: traMADol HCL 50 MG TABLET PO PRN (23:00)
[2022-11-20] MEDS ORDERED: PROMETHAZINE HCL 6.25 MG in SODIUM CHLORIDE 0.9% 50 ML IV PRN (23:01)
[2022-11-20 23:13] LABS: D Dimer 960 ug/L FEU (0-500)
[2022-11-20] MEDS ORDERED: hydrOXYzine HCl 10 MG TAB PO PRN (23:59)
[2022-11-21] MEDS ORDERED: IOVERSOL 350 MG 125mL Prefilled Syringe IV ONE (00:06)
[2022-11-21] MEDS ORDERED: PRAVASTATIN SOD 40 MG TAB PO STA (00:26)
[2022-11-21] MEDS ORDERED: AMITRIPTYLINE HCL 25 MG TAB PO STA (00:26)
[2022-11-21] MEDS ORDERED: EZETIMIBE 10 MG TAB PO STA (00:26)
[2022-11-21] MEDS ORDERED: oxyCODONE HCL IR 5 MG TAB (IMMEDIATE RELEASE) PO PRN (00:26)
[2022-11-21] MEDS ORDERED: GABAPENTIN 300 MG CAP PO STA (00:33)
[2022-11-21] MEDS ORDERED: ACETAMINOPHEN 325 MG TAB PO PRN (00:51)
--- NOTE | 2022-11-21 00:59 | CT Scan Report ---
Exam(s): CTA CHEST IV Amt: 116 ML OPTIRAY 320 EXAM: CT Angiography Chest With Intravenous Contrast CLINICAL HISTORY: Reason for exam: sob. TECHNIQUE: Axial computed tomographic angiography images of the chest with intravenous contrast. CTDI is 26.26 mGy and DLP is 775.83 mGy-cm. Automated exposure control was utilized for the study. A dose lowering technique was utilized adhering to the principles of ALARA. MIP reconstructed images were created and reviewed. COMPARISON: No relevant prior studies available. FINDINGS: Limitations: Motion mildly limits the study. Pulmonary arteries: Unremarkable. No pulmonary embolism. Aorta: No acute findings. No thoracic aortic aneurysm. Lungs: There is bibasilar atelectasis. No mass. Pleural space: Unremarkable. No significant effusion. No pneumothorax. Heart: There is dense coronary vascular calcification. No significant pericardial effusion. No evidence of RV dysfunction. Bones/joints: No acute fracture. No dislocation. Soft tissues: Unremarkable. Lymph nodes: Unremarkable. No enlarged lymph nodes. IMPRESSION: Mildly motion limited study without pulmonary arterial filling defect, pleural effusion, or pneumothorax. Bibasilar atelectasis without dense parenchymal consolidation. Electronically signed by: Thony Akbar MD 11/21/22 00:59 AM
[2022-11-21 04:39] LABS: Basophils # (auto) 0.04 K/uL (0.00-0.20); Basophils % (auto) 0.6 %; Eosinophils # (auto) 0.35 K/uL (0.00-0.50); Hematocrit (blood only) 35.7 % (42.0-52.0); Hemoglobin 12.1 g/dl (14.0-18.0); Immature Granulocytes # (auto) 0.03 K/uL (0.01-0.20); Immature Granulocytes % (auto) 0.4 %; Lymphocytes # (auto) 1.44 K/uL (1.20-3.40); Lymphocytes % (auto) 20.6 %; Mean Corpuscular Hgb Conc 33.9 g/dL (32.0-36.0); Mean Corpuscular Volume 91.5 fL (80.0-100.0); Mean Platelet Volume 9.6 fL (9.4-12.4); Monocytes # (auto) 0.84 K/uL (0.11-0.59); Neutrophils % (auto) 61.4 %; Platelet Count 185 K/uL (130-400); RDW Coefficient of Variation 12.4 % (11.5-14.5); RDW Standard Deviation 41.1 fL (36.4-46.3); Reticulocyte % 1.5 % (0.5-2.0); Reticulocytes # 0.06 10^6/uL (0.02-0.10)
[2022-11-21 05:11] LABS: Calcium 9.1 mg/dl (8.6-10.3); Creatinine Clr Calc Pharmacy 78.6 ml/min; Est GFR (African American) 92.4 ml/min; Est GFR (Non-African American) 79.8 ml/min; Ferritin 125.8 ng/ml (8-388); Potassium 4.5 mmol/L (3.5-5.1)
[2022-11-21 05:52] LABS: Folate (Folic Acid),Ser orPlas 15.41 ng/ml (>5.38)
[2022-11-21] MEDS: LEVOTHYROXINE SODIUM 50 MCG TABLET PO SCH (07:39)
[2022-11-21] MEDS: ASPIRIN 81 MG ECTAB PO SCH (08:37)
[2022-11-21] MEDS: GABAPENTIN 600 MG TAB PO SCH (08:38)
[2022-11-21] MEDS: ENOXAPARIN INJ 40 MG/0.4 ML SYR SQ SCH (08:38)
[2022-11-21] MEDS ORDERED: ATENOLOL 25 MG TABLET PO SCH (09:00)
[2022-11-21] MEDS ORDERED: ENOXAPARIN INJ 40 MG/0.4 ML SYR SQ SCH (09:00)
--- NOTE | 2022-11-21 09:40 | Ultrasound Report ---
BILATERAL LOWER EXTREMITY VENOUS DOPPLER HISTORY: Elevated D dimer R/O DVT COMPARISON STUDY: None. FINDINGS: There is normal compressibility, flow, and augmentation within the bilateral lower extremit y deep venous systems. IMPRESSION: No DVT within the right or left lower extremity. ACT 112: Negative or not required by law. Electronically signed by: Eugene Montelongo M.D. 11/21/2022 9:39 AM
--- NOTE | 2022-11-21 10:26 | Cardiology Consultation ---
Date of Consultation November 21, 2022 Assessment & Plan (1) Multifocal atrial tachycardia: (2) Lyme disease, unspecified: (3) SOB (shortness of breath): (4) Lightheadedness: Plan 72-year-old male presents with intermittent light headedness and dyspnea on exertion. Outpatient ECG demonstrating short runs of multifocal atrial tachycardia. Recently prescribed diltiazem in addition to atenolol. Diltiazem discontinued on admission patient received dose of atenolol (reduced 25 mg daily) today. No recurrent arrhythmias since admission. Possible acute Lyme disease. Received 2 g of IV Rocephin in the ER. Await confirmatory testing. Describes somewhat reproducible symptoms with exertion. Recommend exercise stress echocardiography for further evaluation. Continue low-dose atenolol at this time. Monitor telemetry. History of Present Illness Reason for Consultation: Arrhythmia Requesting Physician: Dr. Alex Attending Physician: Mac Jordan MD History of Present Illness 72-year-old male present to the emergency department due to lightheadedness, dizziness, and shortness of breath. Recently diagnosed with multifocal atrial tachycardia and scheduled for electrophysiology consultation. Evaluated in the emergency department at [facility] on November 09 due to similar symptoms. Prescribed diltiazem CD1 120 mg daily. Patient was supposed to stop atenolol, has continued take atenolol plus diltiazem over the past 2 weeks. Recently vacation at the beach and felt somewhat better without recurrent lightheadedness, however, upon returning home he notes episodes of lightheadedness primarily with activity and exertion. At times symptoms occur when he changes position and stands upright quickly. Denies overt syncope. No exertional chest discomfort. Denies personal history of coronary disease, congestive heart failure, rheumatic fever as a child. [facility] ECGs demonstrate sinus bradycardia with runs of atrial tachycardia, possible multifocal atrial tachycardia. Since admission, telemetry is revealed sinus rhythm and sinus bradycardia in the 50s. No recurrent tachycardia. CTA of the chest demonstrates coronary calcifications without evidence of pulmonary embolus. Preliminary review of bedside echocardiogram demonstrates mild mitral regurgitation with preserved LV systolic function, grade 2 diastolic dysfunction, and moderate left atrial enlargement. Allergies Allergy/AdvReac Type Severity Reaction Status Date / Time Penicillins Allergy Intermediate RASH,HIVES, Verified 08/03/22 13:15 SWELLING NSAIDS (Non-Steroidal Allergy Unknown RASH Unverified 08/03/22 13:15 Anti-Inflamma cefixime AdvReac Unknown GI SYMPTOMS Verified 08/03/22 13:15 sodium benzoate AdvReac Unknown GI SYMPTOMS Verified 08/03/22 13:15 Home Medications Medication Instructions Recorded Confirmed Type amitriptyline 25 mg tablet 25 mg PO DAILY 12/09/17 11/20/22 History aspirin 81 mg tablet,delayed 81 mg PO DAILY 12/09/17 11/20/22 History release (Safia Low Dose Aspirin) atenolol 100 mg tablet 100 mg PO DAILY 12/09/17 11/20/22 History gabapentin 300 mg capsule See Rx Instructions PO DAILY 01/11/20 11/20/22 History vitamins A,C,I-iylr-mdbtvo 1 tab PO BID 07/18/20 11/21/22 History [PreserVision AREDS] ezetimibe 10 mg tablet (Zetia) 10 mg PO DAILY 08/04/21 11/20/22 History pravastatin 80 mg tablet 80 mg PO DAILY 08/03/22 11/20/22 History diltiazem HCl 120 mg 120 mg PO DAILY 11/21/22 11/21/22 History capsule,extended release 24 hr levothyroxine 75 mcg tablet 75 mcg PO DAILY 11/21/22 11/21/22 History venlafaxine 75 mg capsule,extended 75 mg PO DAILY 11/21/22 11/21/22 History release 24 hr Patient History Medical History Acute bronchitis Acute renal failure Arthritis Asthma BPH (benign prostatic hyperplasia) Chronic back pain CKD (chronic kidney disease) stage 2, GFR 60-89 ml/min CKD (chronic kidney disease), stage III Depression Dyslipidemia Dysuria HTN (hypertension) Hydronephrosis chronic r hydronephrosis secondary to R UPJ obstruction - congenital Hydronephrosis of right kidney Hypercholesterolemia Hyperglycemia Hypothyroidism Interstitial nephritis Kidney stone Low back pain Lumbar canal stenosis Lumbar herniated disc Peripheral neuropathy Renal insufficiency Shingles (herpes zoster) polyneuropathy Special screening, prostate cancer Swelling abdomen Tarsal tunnel syndrome s/p surgery Thoracic disc herniation Tooth abscess Ulnar nerve entrapment Ureteropelvic junction obstruction, congenital Surgical History History of cholecystectomy Family History Unknown Hypertension Mother Skin cancer Hypertension Stroke Father Skin cancer Other ALS (amyotrophic lateral sclerosis) No pertinent family history Parkinson disease Social History Smoking Status: Never smoker Second Hand Exposure: No; Do You Dip or Chew Tobacco: No; Hx Alcohol Use: No Hx Substance Use: No Preferred Language: Micronesian Communication Ability: Effective Process Controls Technician Required: No Beliefs That Will Affect Care: None marital status: Current Living Situation: Spouse current occupational status: retired How many Children do You have: 3 Other Information That Helps Us Care for You: Yes Feels Safe at Home: Yes Safety Concerns: Feels Safe At This Time Assistive Devices: Glasses Review of Systems Review of Systems: All systems reviewed & are unremarkable except as noted in Subjective Physical Exam Constitutional: well developed and well nourished; no acute distress Respiratory: normal respiratory effort; no respiratory distress, no labored breathing and no retractions Cardiovascular: Rate/Rhythm: regular rate and regular rhythm Heart Sounds: normal S1, normal S2 and + murmur (1/6 holosystolic murmur heard at the apex) Vessels: no JVD and no carotid bruit Extremities: no edema Gastrointestinal (Abdomen): Inspection/Auscultation: abdomen normal to inspection; abdomen not distended and + abnormal bowel sounds Percussion/Palpation: abdomen soft; abdomen nontender, no guarding and abdomen not rigid Neurologic: CN's II-XI intact bilaterally and moves all extremities; no focal motor deficits Results & Data Vital Signs (Past 12 Hours) Vital Signs Pulse Pulse Resp BP BP Pulse Ox Pulse Ox 11/21/22 10:11 11/21/22 10:00 60 14 152/77 H 98 11/21/22 08:30 55 L 13 97 11/21/22 08:00 56 L 24 98 11/21/22 08:00 160/82 H 11/21/22 07:30 57 L 13 96 11/21/22 07:00 56 L 16 94 11/21/22 06:30 55 L 12 95 11/21/22 06:00 55 L 11 L 11/21/22 06:00 128/62 11/21/22 05:30 56 L 14 11/21/22 05:00 52 L 12 11/21/22 04:30 50 L 15 11/21/22 04:00 53 L 13 125/62 11/21/22 03:00 53 L 13 11/21/22 02:30 56 L 19 144/78 H 95 11/21/22 02:00 56 L 13 142/75 H 96 11/21/22 01:30 55 L 15 147/75 H 97 11/21/22 01:00 62 20 141/77 H 98 11/21/22 00:30 60 17 149/76 H 96 11/21/22 01:01 62 19 141/77 H 99 11/21/22 01:01 99 11/20/22 23:31 58 L 17 98 11/20/22 23:01 54 L 14 136/81 98 11/20/22 22:30 58 L 19 162/85 H 96 O2 Del Method O2 Del Method 11/21/22 10:11 Room Air 11/21/22 10:00 Room Air 11/21/22 08:30 Room Air 11/21/22 08:00 Room Air 11/21/22 08:00 11/21/22 07:30 Room Air 11/21/22 07:00 Room Air 11/21/22 06:30 Room Air 11/21/22 06:00 11/21/22 06:00 11/21/22 05:30 11/21/22 05:00 11/21/22 04:30 11/21/22 04:00 11/21/22 03:00 11/21/22 02:30 Room Air 11/21/22 02:00 Room Air 11/21/22 01:30 Room Air 11/21/22 01:00 Room Air 11/21/22 00:30 Room Air 11/21/22 01:01 Room Air 11/21/22 01:01 Room Air 11/20/22 23:31 Room Air 11/20/22 23:01 Room Air 11/20/22 22:30 Room Air Laboratory Results Cardiac Enzymes 11/20/22 Range/Units 16:02 AST 25 (13-39) U/L Troponin I High Sens 4.1 (0-20) pg/ml Coagulation 11/20/22 Range/Units 16:02 PT 10.9 (9.0-12.0) Seconds APTT 26.1 (21.0-31.0) Seconds CBC 11/20/22 11/21/22 Range/Units 16:02 04:09 WBC 7.42 7.00 (4.8-10.8) K/ul RBC 4.06 L 3.90 L (4.70-6.10) M/uL Hgb 12.7 L 12.1 L (14.0-18.0) g/dl Hct 37.3 L 35.7 L (42.0-52.0) % Plt Count 193 185 (130-400) K/uL Neut # (Auto) 5.02 4.30 (1.40-6.50) K/uL Lymph # (Auto) 1.30 1.44 (1.20-3.40) K/uL [place] # (Auto) 0.78 H 0.84 H (0.11-0.59) K/uL Eos # (Auto) 0.27 0.35 (0.00-0.50) K/uL Baso # (Auto) 0.03 0.04 (0.00-0.20) K/uL Comprehensive Metabolic Panel 11/20/22 11/21/22 Range/Units 16:02 04:09 Sodium 140 135 L (136-145) mmol/L Potassium 4.5 4.5 (3.5-5.1) mmol/L Chloride 106 103 (98-107) mmol/L Carbon Dioxide 29 28 (21-32) mmol/L BUN 27 H 24 H (6-23) mg/dl Creatinine 1.31 0.96 D (0.6-1.4) mg/dl Glucose 78 95 (70-99(Fasting)) mg/dl Calcium 9.4 9.1 (8.6-10.3) mg/dl AST 25 (13-39) U/L ALT 28 (7-52) U/L Alkaline Phosphatase 98 (34-104) U/L Total Protein 7.1 (6.0-8.3) gm/dl Albumin 4.0 (3.4-5.0) gm/dl Intake and Output 11/20/22 11/21/22 11/21/22 22:59 06:59 14:59 Intake Total 150 / 150 Balance 150 / 150 Intake: IV 150 / 150 Lactated Ringer's 1,000 ml @ 50 80 / 80 mls/hr IV .Q20H ONE Rx#: [id number] cefTRIAXone SODIUM 2,000 mg In 70 / 70 70 ml @ 140 mls/hr IV NOW STA Rx#:[id number] Other: Weight 93.1 kg 93.1 kg Weight Measurement Method Chair Scale Built in [facility]
[2022-11-21] MEDS: GABAPENTIN 300 MG CAP PO SCH (12:35)
--- NOTE | 2022-11-21 13:25 | Electrocardiogram Report ---
Test Reason : Blood Pressure : / mmHG Vent. Rate : 056 BPM Atrial Rate : 056 BPM P-R Int : 150 ms QRS Dur : 076 ms QT Int : 398 ms P-R-T Axes : 021 016 023 degrees QTc Int : 384 ms Sinus bradycardia Otherwise normal ECG When compared with ECG of 13-DEC-2017 12:02, No significant change was found Confirmed by Gonzales Niño ([id number]) on 11/21/2022 1:24:55 PM Referred By: Confirmed By:Gonzales Niño
--- NOTE | 2022-11-21 14:57 | Hospitalist Progress Note ---
Date of Service November 21, 2022 Assessment & Plan (1) Dizziness: Plan: Dizziness/Dyspnea on Exertion Sinus Bradycardia H/O CAD Was taking diltiazem, atenolol simultaneously at home --ECHO: EF 60 to 60%. Mild concentric LVH. Left atrium is mildly dilated. Grade 2 diastolic function. Mild mitral regurgitation. Trace tricuspid regurgitation. --CXR:No acute cardiopulmonary findings. No change in appearance of the chest. --Orthostatics Normal Diltiazem discontinued Continue aspirin, statin Atenolol dose decreased to 25 mg daily due to bradycardia Appreciate cardiology input Planned for stress test per cardiology--Result pending Elevated D dimer --CTA:Mildly motion limited study without pulmonary arterial filling defect, pleural effusion, or pneumothorax. Bibasilar atelectasis without dense parenchymal consolidation. --Venous Doppler: No DVT within the right or left lower extremity. Uncontrolled hypertension Continue amlodipine, atenolol Monitor BP Adjust medications as needed Suspected Lyme's disease Equivocal IgM antibody, positive IgG antibody Complete serological testing pending Anaplasmosis smear pending Continue Rocephin for now Hyperlipidemia On statin Asthma/COPD No signs of acute exacerbation CKD II Cr at baseline Monitor renal function Avoid nephrotoxic agent as able H/O Chronic right sided hydronephrosis due to UPJ obstruction Monitor for any bladder retention Prediabetes Last HbA1C: 6 last month Hypothyroidism Normal TSH Continue levothyroxine Anxiety/mood disorder Continue home meds DVT Px: Lovenox SQ Code Status Full code Admission and Anticipated Discharge Date Admission Date: November 20, 2022 Subjective Patient is seen and examined at bedside Dizziness resolved Reports dyspnea on exertion Denies any chest pain, nausea, vomiting, abdominal pain Discussed with patient's family at bedside Review of Systems Review of Systems: All systems reviewed & are unremarkable except as noted in Subjective Physical Exam Physical Exam: Physical Exam: Vitals signs as noted above General Appearance:Moderately built and nourished, no apparent distress Head: normocephalic, Atraumatic Eyes: normal inspection, EOMI Neck: supple, Trachea midline Respiratory/Chest: Normal breath sounds, CTA, No accessory muscle use Cardiovascular: S1, S2, No murmur, +bradycardia Abdomen/GI:Soft, Non tender, Bowel sounds present Extremities/Musculoskeletal:normal inspection, no edema Neurologic/Psych:AAOX3, grossly no focal neurological deficits Skin: normal color, warm Results & Data Results & Data Vital Signs (Past 12 Hours) Vital Signs Pulse Pulse Resp BP BP Pulse Ox O2 Del Method 11/21/22 10:33 Room Air 11/21/22 10:11 Room Air 11/21/22 10:00 60 14 152/77 H 98 Room Air 11/21/22 08:30 55 L 13 97 Room Air 11/21/22 08:00 56 L 24 98 Room Air 11/21/22 08:00 160/82 H 11/21/22 07:30 57 L 13 96 Room Air 11/21/22 07:00 56 L 16 94 Room Air 11/21/22 06:30 55 L 12 95 Room Air 11/21/22 06:00 55 L 11 L 11/21/22 06:00 128/62 11/21/22 05:30 56 L 14 11/21/22 05:00 52 L 12 11/21/22 04:30 50 L 15 11/21/22 04:00 53 L 13 125/62 11/21/22 03:00 53 L 13 Laboratory Results Short CBC 11/20/22 11/21/22 Range/Units 16:02 04:09 WBC 7.42 7.00 (4.8-10.8) K/ul Hgb 12.7 L 12.1 L (14.0-18.0) g/dl Hct 37.3 L 35.7 L (42.0-52.0) % Plt Count 193 185 (130-400) K/uL BMP 11/20/22 11/21/22 16:02 04:09 Sodium 140 135 L Potassium 4.5 4.5 Chloride 106 103 Carbon Dioxide 29 28 BUN 27 H 24 H Creatinine 1.31 0.96 D Glucose 78 95 Calcium 9.4 9.1 Liver Function 11/20/22 Range/Units 16:02 Total Bilirubin 0.7 (0.2-1.0) mg/dl AST 25 (13-39) U/L ALT 28 (7-52) U/L Alkaline Phosphatase 98 (34-104) U/L Albumin 4.0 (3.4-5.0) gm/dl
[2022-11-21 18:36] LABS: Appearance Urine Clear (Clear); Bilirubin Urine Negative (Negative); Blood Urine Negative (Negative); Color Urine Yellow; Glucose Urine UA Negative (Negative); Ketones Urine Negative (Negative); Leukocyte Esterase Urine Negative (Negative); Nitrite Urine Negative (Negative); Protein Urine Negative (Negative); Specific Gravity Urine 1.016 (1.000-1.030); Urobilinogen Urine Negative (Negative); pH Urine 6.5 (4.5-7.5)
[2022-11-21] MEDS ORDERED: PRAVASTATIN SOD 40 MG TAB PO SCH (21:00)
[2022-11-21] MEDS ORDERED: amLODIPine BESYLATE 5 MG TAB PO SCH (21:00)
[2022-11-21] MEDS ORDERED: GABAPENTIN 300 MG CAP PO SCH (21:00)
[2022-11-21] MEDS ORDERED: AMITRIPTYLINE HCL 25 MG TAB PO SCH (21:00)
[2022-11-21] MEDS ORDERED: EZETIMIBE 10 MG TAB PO SCH (21:00)
[2022-11-21] MEDS ORDERED: cefTRIAXone SODIUM 2,000 MG in DEXTROSE 5% 50 ML IV SCH (23:00)
[2022-11-22] MEDS: LEVOTHYROXINE SODIUM 50 MCG TABLET PO SCH (05:47)
[2022-11-22 06:52] LABS: Hematocrit (blood only) 36.6 % (42.0-52.0); Hemoglobin 12.4 g/dl (14.0-18.0); Mean Corpuscular Hemoglobin 30.8 pg (25.0-34.0); Mean Corpuscular Hgb Conc 33.9 g/dL (32.0-36.0); Mean Corpuscular Volume 90.8 fL (80.0-100.0); Mean Platelet Volume 9.4 fL (9.4-12.4); Platelet Count 187 K/uL (130-400); RDW Coefficient of Variation 12.2 % (11.5-14.5); RDW Standard Deviation 40.4 fL (36.4-46.3); Red Blood Count 4.03 M/uL (4.70-6.10); White Blood Count 6.61 K/ul (4.8-10.8)
[2022-11-22 07:15] LABS: BUN Creatinine Ratio 23.6 (10-20); Calcium 9.1 mg/dl (8.6-10.3); Creatinine Clr Calc Pharmacy 71.2 ml/min; Est GFR (Non-African American) 70.8 ml/min; Phosphorus 3.5 mg/dl (2.5-4.9); Potassium 4.5 mmol/L (3.5-5.1)
[2022-11-22] MEDS: ENOXAPARIN INJ 40 MG/0.4 ML SYR SQ SCH (08:46)
[2022-11-22] MEDS: ASPIRIN 81 MG ECTAB PO SCH (08:46)
[2022-11-22] MEDS: GABAPENTIN 600 MG TAB PO SCH (08:47)
[2022-11-22] MEDS ORDERED: METOPROLOL TARTRATE 25 MG TAB PO SCH (09:00)
[2022-11-22] MEDS ORDERED: VENLAFAXINE HCL XR 75 MG CAPXR PO SCH (09:00)
--- NOTE | 2022-11-22 11:19 | Cardiology Progress Note ---
Date of Service November 22, 2022 Assessment & Plan (1) PSVT (paroxysmal supraventricular tachycardia): (2) Lyme disease, unspecified: (3) SOB (shortness of breath): (4) Lightheadedness: Plan 72-year-old male presents with intermittent light headedness and dyspnea on exertion. Paroxysmal supraventricular tachycardia observed during stress testing with spontaneous conversion to sinus rhythm and sinus bradycardia. Concerns regarding possible acute Lyme disease treated with 2 doses of intravenous Rocephin. No recurrent dysrhythmia on telemetry overnight. Recommend transition atenolol to metoprolol tartrate 25 mg twice daily. Outpatient cardiology follow-up scheduled 11/27/2022. No further inpatient cardiac testing or intervention recommended at this time. Await confirmatory Lyme's testing. Continue antibiotic therapy. Admission and Anticipated Discharge Date Admission Date: November 20, 2022 Subjective Patient seen and examined at the bedside. Feeling well this morning. No recurrent tachycardia overnight. Telemetry reveals sinus rhythm in the 60s and 70s. No recurrent lightheadedness or dyspnea. Offers no new concerns/compl aints. Review of Systems Review of Systems: All systems reviewed & are unremarkable except as noted in Subjective Physical Exam Constitutional: well developed and well nourished; no acute distress Respiratory: normal respiratory effort; no respiratory distress, no labored breathing and no retractions Cardiovascular: Rate/Rhythm: regular rate and regular rhythm Heart Sounds: normal S1, normal S2 and + murmur (1/6 holosystolic murmur heard at the apex) Vessels: no JVD and no carotid bruit Extremities: no edema Gastrointestinal (Abdomen): Inspection/Auscultation: abdomen normal to inspection; abdomen not distended and + abnormal bowel sounds Percussion/Palpation: abdomen soft; abdomen nontender, no guarding and abdomen not rigid Neurologic: CN's II-XI intact bilaterally and moves all extremities; no focal motor deficits Results & Data Vital Signs (Past 12 Hours) Vital Signs Temp Pulse Pulse Resp BP Pulse Ox O2 Del Method 11/22/22 10:00 66 11/22/22 09:36 Room Air 11/22/22 08:27 36.6 C 71 17 147/77 H 94 Room Air 11/22/22 03:24 36.5 C 75 18 152/76 H 97 Room Air 11/21/22 23:30 36.8 C 68 18 139/63 94 Room Air Laboratory Results CBC 11/22/22 Range/Units 06:11 WBC 6.61 (4.8-10.8) K/ul RBC 4.03 L (4.70-6.10) M/uL Hgb 12.4 L (14.0-18.0) g/dl Hct 36.6 L (42.0-52.0) % Plt Count 187 (130-400) K/uL Comprehensive Metabolic Panel 11/22/22 Range/Units 06:11 Sodium 139 (136-145) mmol/L Potassium 4.5 (3.5-5.1) mmol/L Chloride 106 (98-107) mmol/L Carbon Dioxide 28 (21-32) mmol/L BUN 25 H (6-23) mg/dl Creatinine 1.06 (0.6-1.4) mg/dl Glucose 102 H (70-99(Fasting)) mg/dl Calcium 9.1 (8.6-10.3) mg/dl Intake and Output 11/21/22 11/22/22 11/22/22 22:59 06:59 14:59 Intake Total 1070 / 1240 170 / 1240 Balance 1070 / 1240 170 / 1240 Intake: IV 920 / 990 70 / 990 Lactated Ringer's 1,000 ml @ 50 920 / 920 mls/hr IV .Q20H ONE Rx#: [id number] cefTRIAXone SODIUM 2,000 mg In 70 / 70 Dextrose 5% 50 ml @ 100 mls/hr IV Q24H [facility] Rx#:[id number] Oral 150 / 250 100 / 250 Other: # Unmeasured Voids 2 1 Weight 91.2 kg Weight Measurement Method Built in [facility]
[2022-11-22] MEDS: GABAPENTIN 300 MG CAP PO SCH (11:42)
--- NOTE | 2022-11-22 15:22 | Discharge Summary ---
Date of Service November 22, 2022 Admission HPI Per Admitting Provider History obtained from patient, family, and records. Medical history significant for CAD as per records, HTN, hyperlipidemia, asthma/COPD, CRI (baseline creatinine 1.3), history chronic right sided hydronephrosis from UPJ obstruction, prediabetes, hypothyroidism, anxiety/mood disorder. Last confinement 2017 for intractable back pain. 2 weeks ago, patient noted lightheaded symptoms especially with standing up. Denies headache. Shortness of breath on exertion without chest pain or palpitations. Transient diarrheal illness a week prior to illness. Patient admits to having a lot of ticks at home although does not recall recent tick bites. No unusual stress. Denies abdominal pain, black/bloody stools, hematuria. Patient consulted [facility] ER last November 09. Heart rate 60s at the ER. Hemoglobin noted to be 13. Possible episodes of SVT as per documentation. Multifocal atrial tachycardia on review of EKGs by [facility] administrative sales assistant. Diltiazem ER in addition to patient's atenolol, outpatient Cardiology referral recommended by administrative sales assistant as per conversation with ER provider, Patient advised to take blood pressure at home. SBP 1 50-1 70s as per patient. Patient not sure if symptoms improved after new medication. Patient brought to ER by with worsening symptoms. Medical History as above Surgical History : Cholecystectomy, carpal tunnel surgery, tarsal tunnel surgery, urologic procedures, ulnar nerve revision Family History : Asthma, dementia, Parkinson's disease, stroke, brain cancer, sarcoidosis Personal/Social history : Non-smoker, no EtOH intake, retired [employer] Admission Exam Per Admitting Provider GENERAL: Comfortable, slightly anxious, no respiratory distress SKIN: Normal color, warm HEENT: Partial alopecia, bespectacled, pink palpebral conjunctivae, no ptosis, dry buccal mucosa NECK : Supple, no tenderness CHEST : CTA, no tenderness HEART : Bradycardic, no obvious murmurs ABDOMEN: Some distention, nontender RECTAL : Intact sphincter, brown stool (FOBT negative) EXTREMITIES : No LE swelling/tenderness, no other conspicuous deformities noted NEUROLOGIC : Coherent, no facial asymmetry, no other gross focality Principal Diagnosis Dizziness: Dyspnea on Exertion PSVT (paroxysmal supraventricular tachycardia): Elevated D dimer Hypertension Suspected Lyme's disease Discharge Exam General- No acute distress Head- atraumatic Eyes- PERRL, EOMI, ENT- oropharynx clear Neck- supple, no JVD Lungs- clear to auscultation Heart- regular rhythm; no murmur Abdomen- normal bowel sounds, soft, nontender Extremities- no calf tenderness Neuro- alert, oriented x 3; PERRL, EOMI; no facial palsy; no dysarthria Skin- warm & dry Discharge Data Allergies Allergy/AdvReac Type Severity Reaction Status Date / Time Penicillins Allergy Intermediate RASH,HIVES, Verified 08/03/22 13:15 SWELLING NSAIDS (Non-Steroidal Allergy Unknown RASH Unverified 08/03/22 13:15 Anti-Inflamma cefixime AdvReac Unknown GI SYMPTOMS Verified 08/03/22 13:15 sodium benzoate AdvReac Unknown GI SYMPTOMS Verified 08/03/22 13:15 Consultations 11/20/22 20:45 ED Decision to Admit Stat 11/21/22 00:51 Consult Cardiology Routine Ordered Studies 11/20/22 23:23 CT angio chest PE protocol Stat 11/21/22 08:18 US venous doppler LE Routine Laboratory Results WBC 6.61 K/ul (4.8-10.8) 11/22/22 06:11 RBC 4.03 M/uL (4.70-6.10) L 11/22/22 06:11 Hgb 12.4 g/dl (14.0-18.0) L 11/22/22 06:11 Hct 36.6 % (42.0-52.0) L 11/22/22 06:11 MCV 90.8 fL (80.0-100.0) 11/22/22 06:11 MCH 30.8 pg (25.0-34.0) 11/22/22 06:11 MCHC 33.9 g/dL (32.0-36.0) 11/22/22 06:11 RDW Std Deviation 40.4 fL (36.4-46.3) 11/22/22 06:11 RDW Coeff of Ambrosio 12.2 % (11.5-14.5) 11/22/22 06:11 Plt Count 187 K/uL (130-400) 11/22/22 06:11 MPV 9.4 fL (9.4-12.4) 11/22/22 06:11 Immature Gran % (Auto) 0.4 % 11/21/22 04:09 Neut % (Auto) 61.4 % 11/21/22 04:09 Lymph % (Auto) 20.6 % 11/21/22 04:09 [place] % (Auto) 12.0 % 11/21/22 04:09 Eos % (Auto) 5.0 % 11/21/22 04:09 Baso % (Auto) 0.6 % 11/21/22 04:09 Reticulocyte % (Auto) 1.5 % (0.5-2.0) 11/21/22 04:09 Neut # (Auto) 4.30 K/uL (1.40-6.50) 11/21/22 04:09 Lymph # (Auto) 1.44 K/uL (1.20-3.40) 11/21/22 04:09 [place] # (Auto) 0.84 K/uL (0.11-0.59) H 11/21/22 04:09 Eos # (Auto) 0.35 K/uL (0.00-0.50) 11/21/22 04:09 Baso # (Auto) 0.04 K/uL (0.00-0.20) 11/21/22 04:09 Reticulocyte # 0.06 10^6/uL (0.02-0.10) 11/21/22 04:09 Immature Gran # (Auto) 0.03 K/uL (0.01-0.20) 11/21/22 04:09 PT 10.9 Seconds (9.0-12.0) 11/20/22 16:02 INR 1.0 (0.9-1.1) 11/20/22 16:02 APTT 26.1 Seconds (21.0-31.0) 11/20/22 16:02 PTT Ratio 0.9 11/20/22 16:02 D-Dimer 960 ug/L FEU (0-500) H* 11/20/22 22:13 Sodium 139 mmol/L (136-145) 11/22/22 06:11 Potassium 4.5 mmol/L (3.5-5.1) 11/22/22 06:11 Chloride 106 mmol/L (98-107) 11/22/22 06:11 Carbon Dioxide 28 mmol/L (21-32) 11/22/22 06:11 Anion Gap 5 (3-11) 11/22/22 06:11 BUN 25 mg/dl (6-23) H 11/22/22 06:11 Creatinine 1.06 mg/dl (0.6-1.4) 11/22/22 06:11 Est Cr Clr Drug Dosing 71.2 ml/min 11/22/22 06:11 Est GFR ( Amer) 82.0 ml/min 11/22/22 06:11 Est GFR (Non-Af Amer) 70.8 ml/min 11/22/22 06:11 BUN/Creatinine Ratio 23.6 (10-20) H 11/22/22 06:11 Glucose 102 mg/dl (70-99(Fasting)) H 11/22/22 06:11 Calcium 9.1 mg/dl (8.6-10.3) 11/22/22 06:11 Phosphorus 3.5 mg/dl (2.5-4.9) 11/22/22 06:11 Magnesium 2.0 mg/dl (1.7-2.4) 11/22/22 06:11 Iron 43 mcg/dl (35-175) 11/21/22 04:09 Transferrin 197 mg/dl (200-360) L 11/21/22 04:09 Ferritin 125.8 ng/ml (8-388) 11/21/22 04:09 Total Bilirubin 0.7 mg/dl (0.2-1.0) 11/20/22 16:02 AST 25 U/L (13-39) 11/20/22 16:02 ALT 28 U/L (7-52) 11/20/22 16:02 Alkaline Phosphatase 98 U/L (34-104) 11/20/22 16:02 Troponin I High Sens 4.1 pg/ml (0-20) 11/20/22 16:02 Total Protein 7.1 gm/dl (6.0-8.3) 11/20/22 16:02 Albumin 4.0 gm/dl (3.4-5.0) 11/20/22 16:02 Globulin 3.1 gm/dl (2.5-4.0) 11/20/22 16:02 Albumin/Globulin Ratio 1.3 (0.9-2) 11/20/22 16:02 Vitamin B12 286 pg/ml (180-914) 11/21/22 04:09 Folate 15.41 ng/ml (>5.38) 11/21/22 04:09 TSH 3.038 uIu/ml (0.300-4.500) 11/20/22 16:02 Urine Color Yellow 11/21/22 18:19 Urine Appearance Clear (Clear) 11/21/22 18:19 Urine pH 6.5 (4.5-7.5) 11/21/22 18:19 Ur Specific Hope 1.016 (1.000-1.030) 11/21/22 18:19 Urine Protein Negative (Negative) 11/21/22 18:19 Urine Glucose (UA) Negative (Negative) 11/21/22 18:19 Urine Ketones Negative (Negative) 11/21/22 18:19 Urine Blood Negative (Negative) 11/21/22 18:19 Urine Nitrite Negative (Negative) 11/21/22 18:19 Urine Bilirubin Negative (Negative) 11/21/22 18:19 Urine Urobilinogen Negative (Negative) 11/21/22 18:19 Ur Leukocyte Esterase Negative (Negative) 11/21/22 18:19 Anaplasma Smear See Comment 11/22/22 06:11 Lyme Disease IgG Ab Positive (Negative) A 11/20/22 16:02 Lyme IgG (Western Blot) NEGATIVE (NEGATIVE) 11/20/22 16:02 Lyme IgG 18 kDa Band REACTIVE A 11/20/22 16:02 Lyme IgG 23 kDa Band NON-REACTIVE 11/20/22 16:02 Lyme IgG 28 kDa Band NON-REACTIVE 11/20/22 16:02 Lyme IgG 30 kDa Band NON-REACTIVE 11/20/22 16:02 Lyme IgG 39 kDa Band REACTIVE A 11/20/22 16:02 Lyme IgG 41 kDa Band REACTIVE A 11/20/22 16:02 Lyme IgG 45 kDa Band NON-REACTIVE 11/20/22 16:02 Lyme IgG 58 kDa Band NON-REACTIVE 11/20/22 16:02 Lyme IgG 66 kDa Band NON-REACTIVE 11/20/22 16:02 Lyme IgG 93 kDa Band NON-REACTIVE 11/20/22 16:02 Lyme IgM Ab (WB) NEGATIVE (NEGATIVE) 11/20/22 16:02 Lyme Disease IgM Ab Equivocal (Negative) A 11/20/22 16:02 Lyme IgM 23 kDa Band NON-REACTIVE 11/20/22 16:02 Lyme IgM 39 kDa Band NON-REACTIVE 11/20/22 16:02 Lyme IgM 41 kDa Band NON-REACTIVE 11/20/22 16:02 Impressions Chest X-Ray 11/20/22 15:27 XR chest 1V not portable CLINICAL HISTORY: Chest pain, nonspecific COMPARISON STUDY: Chest radiograph December 22, 2017. FINDINGS: Lung volumes are normal. There is no consolidation to suggest pneumonia. Linear left basilar densities favor atelectasis or scarring. There is no pneumothorax or pleural effusion. Cardiac size is stable. Mediastinal contours are normal. There is no evidence for pulmonary edema. IMPRESSION: No acute cardiopulmonary findings. No change in appearance of the chest. ACT 112: Negative or not required by law. Electronically signed by: Gopal Donaldson M.D. 11/20/2022 4:01 PM Chest CTA 11/20/22 23:23 Exam(s): CTA CHEST IV Amt: 116 ML OPTIRAY 320 EXAM: CT Angiography Chest With Intravenous Contrast CLINICAL HISTORY: Reason for exam: sob. TECHNIQUE: Axial computed tomographic angiography images of the chest with intravenous contrast. CTDI is 26.26 mGy and DLP is 775.83 mGy-cm. Automated exposure control was utilized for the study. A dose lowering technique was utilized adhering to the principles of ALARA. MIP reconstructed images were created and reviewed. COMPARISON: No relevant prior studies available. FINDINGS: Limitations: Motion mildly limits the study. Pulmonary arteries: Unremarkable. No pulmonary embolism. Aorta: No acute findings. No thoracic aortic aneurysm. Lungs: There is bibasilar atelectasis. No mass. Pleural space: Unremarkable. No significant effusion. No pneumothorax. Heart: There is dense coronary vascular calcification. No significant pericardial effusion. No evidence of RV dysfunction. Bones/joints: No acute fracture. No dislocation. Soft tissues: Unremarkable. Lymph nodes: Unremarkable. No enlarged lymph nodes. IMPRESSION: Mildly motion limited study without pulmonary arterial filling defect, pleural effusion, or pneumothorax. Bibasilar atelectasis without dense parenchymal consolidation. Electronically signed by: Thony Akbar MD 11/21/22 00:59 AM Venous Doppler Study 11/21/22 08:18 BILATERAL LOWER EXTREMITY VENOUS DOPPLER HISTORY: Elevated D dimer R/O DVT COMPARISON STUDY: None. FINDINGS: There is normal compressibility, flow, and augmentation within the bilateral lower extremity deep venous systems. IMPRESSION: No DVT within the right or left lower extremity. ACT 112: Negative or not required by law. Electronically signed by: Eugene Montelongo M.D. 11/21/2022 9:39 AM Hospital Course (1) Dizziness: Dizziness/Dyspnea on Exertion Sinus Bradycardia H/O CAD Was taking diltiazem, atenolol simultaneously at home --ECHO: EF 60 to 60%. Mild concentric LVH. Left atrium is mildly dilated. Grade 2 diastolic function. Mild mitral regurgitation. Trace tricuspid regurgitation. --CXR:No acute cardiopulmonary findings. No change in appearance of the chest. --Orthostatics Normal Diltiazem discontinued Continue aspirin, statin Atenolol dose decreased to 25 mg daily due to bradycardia Appreciate cardiology input Planned for stress test per cardiology--Result pending Elevated D dimer --CTA:Mildly motion limited study without pulmonary arterial filling defect, pleural effusion, or pneumothorax. Bibasilar atelectasis without dense parenchymal consolidation. --Venous Doppler: No DVT within the right or left lower extremity. Uncontrolled hypertension Continue amlodipine, atenolol Monitor BP Adjust medications as needed Suspected Lyme's disease Equivocal IgM antibody, positive IgG antibody Complete serological testing pending Anaplasmosis smear showed no evidence of intracytoplasmic neutrophilic inclusions to suggest Anaplasmosis. Currently on IV Rocephin, will transition to Doxycycline while waiting for lyme confirmation ( PCP will review result for lyme. Hyperlipidemia On statin Asthma/COPD No signs of acute exacerbation CKD II Cr at baseline Monitor renal function Avoid nephrotoxic agent as able H/O Chronic right sided hydronephrosis due to UPJ obstruction Monitor for any bladder retention Prediabetes Last HbA1C: 6 last month Hypothyroidism Normal TSH Continue levothyroxine Anxiety/mood disorder Continue home meds DVT Px: Lovenox SQ Code Status Full code Total Time Total Time Spent Total Time Spent (In Minutes): 45 minutes Discharge Plan Discharge Items Patient Disposition: Home - Self-Care Reason For Visit: LYME DISEASE, ARRHYTHMIA Discharge Diagnosis: Dizziness: Dyspnea on Exertion PSVT (paroxysmal supraventricular tachycardia): Elevated D dimer Hypertension Suspected Lyme's disease Activity: Resume your previous activity Non-emergency contact: Primary Care Provider and Wood Milling Machine Operator Call non-emergency contact if: you have any medication questions and your symptoms worsen Follow-up/Referrals: Chelsea Melendez PA-C [Primary Care Provider] - (Chelsea Melendez is no longer with the [facility] Clarissa Lim CRNP [Outside Practitioners] - (Date & Time 11/29/2022 2:40 PM Provider ADELAIDA Castaneda Department [facility] ) Diet: Heart Healthy Addtl Attending Provider Instructions: Follow up with your primary care provider Clarissa SON 11/29/2022 @ 2:40 PM Provider [facility] Follow up with cardiology Dr. Latif on 11/27/2022 @ 10:00 AM Lyme confirmation test pending Continue doxycycline 100mg twice a day. Your provider will discuss the result for the Lyme test and will advise you if you need to continue the treatment according with the result Atenolol was changed to metoprolol 25 mg twice a day Your will need outpatient work up for anemia. Your provider will arrange for that Continue monitor your blood pressure and bring your blood pressure log at your next follow appointment with your provider Seek medical attention if you develop any symptoms such as dizziness, palpitation or shortness of breath. Pending Studies at Discharge: No Stand-Alone Forms: My [facility], Smoking Cessation Medications and DC Order Prescriptions: New amlodipine [Norvasc] 5 mg Tablet 2.5 mg PO HS 30 Days Qty: 15 0RF metoprolol tartrate 25 mg Tablet 25 mg PO BID Qty: 60 0RF doxycycline hyclate 100 mg tablet 100 mg PO BID 10 Days Qty: 20 0RF Continued vitamins A,C,A-soxb-ntuxul 1 tab PO BID ezetimibe [Zetia] 10 mg tablet 10 mg PO DAILY pravastatin 80 mg tablet 80 mg PO DAILY aspirin [Safia Low Dose Aspirin] 81 mg Tablet,Delayed Release (Dr/Ec) 81 mg PO DAILY amitriptyline 25 mg tablet 25 mg PO DAILY gabapentin 300 mg capsule See Rx Instructions PO DAILY Rx Instructions: 600 mg QAM, 300 mg at lunch, & 900 mg QHS PO daily; venlafaxine 75 mg capsule,extended release 24hr 75 mg PO DAILY levothyroxine 75 mcg tablet 75 mcg PO DAILY Discontinued atenolol 100 mg tablet 100 mg PO DAILY diltiazem HCl 120 mg capsule,extended release 24hr 120 mg PO DAILY Discharge Orders: Discharge Order (Routine); Ordered 11/22/22 Ordered By: Louie Self/Other Patient Handouts: Hypertension and PAD, ED Lyme Disease Admission Data Admit Date/Time: 11/20/22 22:57 Attending Provider: Louie Ellis Admit Provider: Herminio Alex Primary Care Provider: Chelsea Melendez Other Providers: Herminio Alex ; Tigist Dao ; Aaron Nash ; Conner Marquez ; Thom Benavides ; Lior Lopez ; Kane Patten ; Aubrie Soler ; Amelie Nguyen ; Tigist Hoyt ; Chris Latif ; Jd Cleaning ; Sloan Kendall ; Mac Jordan Other Interventions: Discharge Summary Assessment (RN) Last Done: 11/22/22 16:19
[2022-11-22 15:47] LABS: 18KDIGG Band REACTIVE; 23KDIGG Band NON-REACTIVE; 23KDIGM Band NON-REACTIVE; 28KDIGG Band NON-REACTIVE; 30KDIGG Band NON-REACTIVE; 39KDIGG Band REACTIVE; 39KDIGM Band NON-REACTIVE; 41KDIGG Band REACTIVE; 41KDIGM Band NON-REACTIVE; 45KDIGG Band NON-REACTIVE; 58KDIGG Band NON-REACTIVE; 66KDIGG Band NON-REACTIVE; 93KDIGG Band NON-REACTIVE; Lyme Antibodies, WB IgG NEGATIVE (NEGATIVE); Lyme Antibodies, WB IgM NEGATIVE (NEGATIVE)
== END 2022-11-22 17:38 | disposition home or self-care (01) | DRG 309 ==
LOC: ED 15:20 → SUATTDRO 22:57 → EDINP 22:57 → 2S 11-21 10:11